=== PATIENT | male | born 1970 | race Caucasian/White ===

== ENCOUNTER 2019-01-29 09:09 | Inpatient (IN) | payer OTHER ==
[2019-01-29 10:25] VITALS: BMI 23.1
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
[2019-01-29] MEDS ORDERED: MAGNESIUM CITRATE 300 ML BOTTLE PO PRN (12:15)
[2019-01-29] MEDS ORDERED: METHOCARBAMOL 500 MG TABLET PO PRN (12:15)
[2019-01-29] MEDS ORDERED: MAGNESIUM HYDROX 2400MG/30ML ORAL SUSPENSION 30 ML CUP PO PRN (12:15)
[2019-01-29] MEDS ORDERED: BISMUTH SUBSALICYLATE 524 MG/30 ML UD PO PRN (12:15)
[2019-01-29] MEDS ORDERED: IBUPROFEN 400 MG TABLET (FP) PO PRN (12:15)
[2019-01-29] MEDS ORDERED: MAG HYDROX/AL HYDROX/SIMETH 30 ML UNIT-DOSE CUP PO PRN (12:15)
[2019-01-29] MEDS ORDERED: MENTHOL/PHENOL 1 EACH UD MM PRN (12:15)
[2019-01-29] MEDS ORDERED: chlordiazePOXIDE HCL 25 MG CAPSULE PO PRN (12:15)
[2019-01-29] MEDS ORDERED: ACETAMINOPHEN 325 MG TABLET (FP) PO PRN ×2 (12:15)
[2019-01-29] MEDS ORDERED: ALBUTEROL SO4 8 GM HFA INHALER IH PRN (12:18)
[2019-01-29] MEDS: BUDESONIDE/FORMETEROL FUMARATE 80/4.5 mcg INHALER IH SCH (13:09)
[2019-01-29] MEDS: metoPROLOL SUCCINATE 25 MG TAB.SR.24H (FP) PO SCH (13:09)
[2019-01-29] MEDS: LISINOPRIL 10 MG TABLET (FP) PO SCH (13:09)
[2019-01-29] MEDS: chlordiazePOXIDE HCL 25 MG CAPSULE PO SCH ×3 (13:11→22:10)
[2019-01-29 15:44] LABS: HEMATOCRIT 35.2 % (35.4-49); HEMOGLOBIN 12.1 GM/dL (11.7-16.9); MCH 32.7 pg (25.7-33.7); MCHC 34.4 g/dl (32.0-35.9); MEAN PLT VOLUME 9.8 fl (7.5-11.1); PLATELET COUNT 91 K/MM3 (134-434); RDW 13.3 % (11.9-15.9); WHITE BLOOD COUNT 4.4 K/mm3 (4.0-10.0)
[2019-01-29 16:06] LABS: ALBUMIN 3.6 g/dl (3.4-5.0); BILIRUBIN,TOTAL 0.4 mg/dL (0.2-1); BLOOD UREA NITROGEN 8.4 mg/dL (7-18); CALCIUM 8.5 mg/dL (8.5-10.1); CREATININE 0.7 mg/dL (0.55-1.3); POTASSIUM 3.8 mmol/L (3.5-5.1); TOT PROT 7.6 g/dl (6.4-8.2)
[2019-01-29] MEDS: THIAMINE HCL 100 MG TABLET (FP) PO SCH (22:10)
[2019-01-29] MEDS: MELATONIN 5 MG TABLETS PO PRN (22:11)
[2019-01-30] MEDS ORDERED: METHADONE HCL 40 MG DISPERSABLE TABLET ONE (04:50)
[2019-01-30] MEDS ORDERED: METHADONE HCL 10 MG TABLET ONE (04:50)
[2019-01-30] MEDS: chlordiazePOXIDE HCL 25 MG CAPSULE PO SCH ×4 (05:50→22:12)
[2019-01-30] MEDS: METHADONE 40 MG, METHADONE 10 MG PO SCH (05:50)
[2019-01-30] MEDS ORDERED: METHADONE HCL 40 MG DISPERSABLE TABLET PO SCH (10:00)
[2019-01-30] MEDS: PRENATAL VITAMINS W/ FOLIC ACID TABLET (FP) PO SCH (10:08)
[2019-01-30] MEDS: BUDESONIDE/FORMETEROL FUMARATE 80/4.5 mcg INHALER IH SCH (10:08)
[2019-01-30] MEDS: metoPROLOL SUCCINATE 25 MG TAB.SR.24H (FP) PO SCH (10:08)
[2019-01-30] MEDS: LISINOPRIL 10 MG TABLET (FP) PO SCH (10:09)
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
[2019-01-30] MEDS ORDERED: NICOTINE POLACRILEX 2 MG GUM BUC PRN (15:53)
--- NOTE | 2019-01-30 15:58 | PN ---
S CIWA - CIWA Score Nausea/Vomitin-Mild Nausea/No Vomiting Muscle Tremors: 4-Moderate,w/Arms Extend Anxiety: 3 Agitation: 2 Paroxysmal Sweats: 1-Minimal Palms Moist Orientation: 0-Oriented Tacttile Disturbances: 1-Very Mild Itch/Numbness Auditory Disturbances: 0-None Visual Disturbances: 0-None Headache: 1-Very Mild CIWA-Ar Total Score: 13 BHS Progress Note (SOAP) Subjective: 49 years old male admitted on 01/29/19 for acute alcohol withdrawal sx management doing well with librium detox regimen feeling tired resting on bed tremor restlessness Objective: 01/30/19 15:56 Vital Signs Temperature 98.9 F 01/30/19 09:43 Pulse Rate 71 01/30/19 09:43 Respiratory Rate 18 01/30/19 09:43 Blood Pressure 146/91 01/30/19 09:43 O2 Sat by Pulse Oximetry (%) Laboratory Last Values WBC 4.4 K/mm3 (4.0-10.0) 01/29/19 12:40 RBC 3.70 M/mm3 (4.00-5.60) L 01/29/19 12:40 Hgb 12.1 GM/dL (11.7-16.9) 01/29/19 12:40 Hct 35.2 % (35.4-49) L 01/29/19 12:40 MCV 95.0 fl (80-96) 01/29/19 12:40 MCH 32.7 pg (25.7-33.7) 01/29/19 12:40 MCHC 34.4 g/dl (32.0-35.9) 01/29/19 12:40 RDW 13.3 % (11.9-15.9) 01/29/19 12:40 Plt Count 91 K/MM3 (134-434) L 01/29/19 12:40 MPV 9.8 fl (7.5-11.1) 01/29/19 12:40 Sodium 143 mmol/L (136-145) 01/29/19 12:40 Potassium 3.8 mmol/L (3.5-5.1) 01/29/19 12:40 Chloride 107 mmol/L (98-107) 01/29/19 12:40 Carbon Dioxide 27 mmol/L (21-32) 01/29/19 12:40 Anion Gap 9 MMOL/L (8-16) 01/29/19 12:40 BUN 8.4 mg/dL (7-18) 01/29/19 12:40 Creatinine 0.7 mg/dL (0.55-1.3) 01/29/19 12:40 Est GFR (CKD-EPI)AfAm 130.25 01/29/19 12:40 Est GFR (CKD-EPI)NonAf 112.38 01/29/19 12:40 Random Glucose 122 mg/dL (74-106) H 01/29/19 12:40 Calcium 8.5 mg/dL (8.5-10.1) 01/29/19 12:40 Total Bilirubin 0.4 mg/dL (0.2-1) 01/29/19 12:40 AST 106 U/L (15-37) H 01/29/19 12:40 ALT 91 U/L (13-61) H 01/29/19 12:40 Alkaline Phosphatase 72 U/L (45-117) 01/29/19 12:40 Total Protein 7.6 g/dl (6.4-8.2) 01/29/19 12:40 Albumin 3.6 g/dl (3.4-5.0) 01/29/19 12:40 RPR Titer Nonreactive (NONREACTIVE) 01/29/19 12:40 lab noted ast elevation low plat discontinue motrin repeat ast 01/30/19 15:57 Assessment: 01/30/19 15:57 alcohol withdrawal sx Plan: continue alcohol detox
[2019-01-30] MEDS: NICOTINE 14 MG/24 HOURS TOPICAL PATCH TD SCH (16:54)
[2019-01-30] MEDS: THIAMINE HCL 100 MG TABLET (FP) PO SCH (22:12)
[2019-01-30] MEDS: QUEtiapine FUMARATE 100 MG TABLET (FP) PO SCH (22:14)
[2019-01-31] MEDS ORDERED: METHADONE HCL 10 MG TABLET ONE (03:44)
[2019-01-31] MEDS ORDERED: METHADONE HCL 40 MG DISPERSABLE TABLET ONE (03:44)
[2019-01-31] MEDS: chlordiazePOXIDE HCL 25 MG CAPSULE PO SCH ×4 (05:44→22:07)
[2019-01-31] MEDS: METHADONE 40 MG, METHADONE 10 MG PO SCH (05:44)
[2019-01-31] MEDS: BUDESONIDE/FORMETEROL FUMARATE 80/4.5 mcg INHALER IH SCH (10:06)
[2019-01-31] MEDS: NICOTINE 14 MG/24 HOURS TOPICAL PATCH TD SCH (10:07)
[2019-01-31] MEDS: PRENATAL VITAMINS W/ FOLIC ACID TABLET (FP) PO SCH (10:07)
[2019-01-31] MEDS: metoPROLOL SUCCINATE 25 MG TAB.SR.24H (FP) PO SCH (10:07)
[2019-01-31] MEDS: LISINOPRIL 10 MG TABLET (FP) PO SCH (10:07)
[2019-01-31] MEDS ORDERED: cloNIDine HCL 0.1 MG TABLET PO ONE (14:25)
--- NOTE | 2019-01-31 14:30 | PN ---
[facility] CIWA - CIWA Score Nausea/Vomitin-No Nausea/No Vomiting Muscle Tremors: 2 Anxiety: 5 Agitation: 4-Moderately Restless Paroxysmal Sweats: No Perspiration Orientation: 2-Disoriented Date<2 days Tacttile Disturbances: 1-Very Mild Itch/Numbness Auditory Disturbances: 0-None Visual Disturbances: 0-None Headache: 0-None Present CIWA-Ar Total Score: 14 BHS Progress Note (SOAP) Subjective: Patient very Anxious and Restless. Objective: PATIENT A & O X 2 (UNCERTAIN ABOUT CURRENT DAY / DATE). PATIENT OBSERVED AMBULATING ON UNIT UNASSISTED. IN NO ACUTE DISTRESS. 01/31/19 14:27 Vital Signs Temperature 98.0 F 01/31/19 13:32 Pulse Rate 71 01/31/19 13:32 Respiratory Rate 18 01/31/19 13:32 Blood Pressure 123/82 01/31/19 13:32 O2 Sat by Pulse Oximetry (%) Laboratory Tests 01/29/19 01/29/19 01/29/19 12:40 12:40 12:40 WBC 4.4 RBC 3.70 L Hgb 12.1 Hct 35.2 L MCV 95.0 MCH 32.7 MCHC 34.4 RDW 13.3 Plt Count 91 L MPV 9.8 Sodium 143 Potassium 3.8 Chloride 107 Carbon Dioxide 27 Anion Gap 9 BUN 8.4 Creatinine 0.7 Est GFR (CKD-EPI)AfAm 130.25 Est GFR (CKD-EPI)NonAf 112.38 Random Glucose 122 H Calcium 8.5 Total Bilirubin 0.4 AST 106 H ALT 91 H Alkaline Phosphatase 72 Total Protein 7.6 Albumin 3.6 RPR Titer Nonreactive 01/31/19 07:00 WBC RBC Hgb Hct MCV MCH MCHC RDW Plt Count MPV Sodium Potassium Chloride Carbon Dioxide Anion Gap BUN Creatinine Est GFR (CKD-EPI)AfAm Est GFR (CKD-EPI)NonAf Random Glucose Calcium Total Bilirubin AST 83 H ALT Alkaline Phosphatase Total Protein Albumin RPR Titer LABS NOTED. RESULT OF REPEAT AST LEVEL NOTED - MODERATE REDUCTION NOTED IN COMPARISON TO ADMISSION AST LEVEL. 01/31/19 14:29 Assessment: 01/31/19 14:29 WITHDRAWAL SYMPTOMS. ANEMIA. THROMBOCYTOPENIA. ELEVATED AST LEVEL. ELEVATED ALT LEVEL. Plan: CONTINUE DETOX. INCREASE DAILY PO WATER INTAKE.
[2019-01-31] MEDS: hydrOXYzine PAMOATE 25 MG CAPSULE (FP) PO PRN (14:53)
[2019-01-31] MEDS: THIAMINE HCL 100 MG TABLET (FP) PO SCH (22:07)
[2019-01-31] MEDS: QUEtiapine FUMARATE 100 MG TABLET (FP) PO SCH (22:07)
[2019-01-31] MEDS: MELATONIN 5 MG TABLETS PO PRN (22:08)
[2019-02-01] MEDS ORDERED: chlordiazePOXIDE HCL 10 MG CAPSULE PO PRN
[2019-02-01] MEDS ORDERED: METHADONE HCL 40 MG DISPERSABLE TABLET ONE (04:51)
[2019-02-01] MEDS ORDERED: METHADONE HCL 10 MG TABLET ONE (04:51)
[2019-02-01] MEDS: chlordiazePOXIDE HCL 10 MG CAPSULE PO SCH ×4 (06:13→22:06)
[2019-02-01] MEDS: METHADONE 40 MG, METHADONE 10 MG PO SCH (06:13)
[2019-02-01] MEDS: BUDESONIDE/FORMETEROL FUMARATE 80/4.5 mcg INHALER IH SCH (10:08)
[2019-02-01] MEDS: PRENATAL VITAMINS W/ FOLIC ACID TABLET (FP) PO SCH (10:09)
[2019-02-01] MEDS: NICOTINE 14 MG/24 HOURS TOPICAL PATCH TD SCH (10:09)
[2019-02-01] MEDS: LISINOPRIL 10 MG TABLET (FP) PO SCH (10:09)
[2019-02-01] MEDS: metoPROLOL SUCCINATE 25 MG TAB.SR.24H (FP) PO SCH (10:09)
--- NOTE | 2019-02-01 14:38 | PN ---
[facility] CIWA - CIWA Score Nausea/Vomitin-No Nausea/No Vomiting Muscle Tremors: None Anxiety: 4-Mod. Anxious/Guarded Agitation: 4-Moderately Restless Paroxysmal Sweats: No Perspiration Orientation: 0-Oriented Tacttile Disturbances: 1-Very Mild Itch/Numbness Auditory Disturbances: 0-None Visual Disturbances: 0-None Headache: 0-None Present CIWA-Ar Total Score: 9 S Progress Note (SOAP) Subjective: Anxious, Restless. Objective: PATIENT A & O X 3, OBSERVED AMBULATING ON DETOX UNIT UNASSISTED. IN NO ACUTE DISTRESS. 02/01/19 14:39 Vital Signs Temperature 98.1 F 02/01/19 13:46 Pulse Rate 61 02/01/19 13:46 Respiratory Rate 16 02/01/19 13:46 Blood Pressure 114/72 02/01/19 13:46 O2 Sat by Pulse Oximetry (%) Laboratory Tests 01/29/19 01/29/19 01/29/19 12:40 12:40 12:40 WBC 4.4 RBC 3.70 L Hgb 12.1 Hct 35.2 L MCV 95.0 MCH 32.7 MCHC 34.4 RDW 13.3 Plt Count 91 L MPV 9.8 Sodium 143 Potassium 3.8 Chloride 107 Carbon Dioxide 27 Anion Gap 9 BUN 8.4 Creatinine 0.7 Est GFR (CKD-EPI)AfAm 130.25 Est GFR (CKD-EPI)NonAf 112.38 Random Glucose 122 H Calcium 8.5 Total Bilirubin 0.4 AST 106 H ALT 91 H Alkaline Phosphatase 72 Total Protein 7.6 Albumin 3.6 RPR Titer Nonreactive 01/31/19 07:00 WBC RBC Hgb Hct MCV MCH MCHC RDW Plt Count MPV Sodium Potassium Chloride Carbon Dioxide Anion Gap BUN Creatinine Est GFR (CKD-EPI)AfAm Est GFR (CKD-EPI)NonAf Random Glucose Calcium Total Bilirubin AST 83 H ALT Alkaline Phosphatase Total Protein Albumin RPR Titer LABS NOTED. RESULT OF REPEAT AST LEVEL NOTED. MODERATE REDUCTION NOTED ON REPEAT IN COMAPRISON TO DETOX ADMISSION AST LEVEL. Assessment: 02/01/19 14:40 WITHDRAWAL SYMPTOMS. LEUKOPENIA. ANEMIA. ELEVATED AST LEVEL. ELEVATED ALT LEVEL. Plan: CONTINUE DETOX. CLONIDINE, 0.1 MG PO X 1 DOSE ORDERED FOR SEVERE ANXIETY DUE TO WITHDRAWAL.
[2019-02-01] MEDS ORDERED: cloNIDine HCL 0.1 MG TABLET PO ONE (15:00)
[2019-02-01] MEDS: THIAMINE HCL 100 MG TABLET (FP) PO SCH (22:06)
[2019-02-01] MEDS: hydrOXYzine PAMOATE 25 MG CAPSULE (FP) PO PRN (22:06)
[2019-02-01] MEDS: QUEtiapine FUMARATE 100 MG TABLET (FP) PO SCH (22:06)
[2019-02-02] MEDS ORDERED: METHADONE HCL 10 MG TABLET ONE (04:33)
[2019-02-02] MEDS ORDERED: METHADONE HCL 40 MG DISPERSABLE TABLET ONE (04:33)
[2019-02-02] MEDS: METHADONE 40 MG, METHADONE 10 MG PO SCH (05:52)
[2019-02-02] MEDS: chlordiazePOXIDE HCL 10 MG CAPSULE PO SCH ×2 (05:52→17:45)
[2019-02-02] MEDS: BUDESONIDE/FORMETEROL FUMARATE 80/4.5 mcg INHALER IH SCH (10:05)
[2019-02-02] MEDS: LISINOPRIL 10 MG TABLET (FP) PO SCH (10:06)
[2019-02-02] MEDS: NICOTINE 14 MG/24 HOURS TOPICAL PATCH TD SCH (10:06)
[2019-02-02] MEDS: metoPROLOL SUCCINATE 25 MG TAB.SR.24H (FP) PO SCH (10:06)
[2019-02-02] MEDS: PRENATAL VITAMINS W/ FOLIC ACID TABLET (FP) PO SCH (10:06)
--- NOTE | 2019-02-02 12:04 | PN ---
S CIWA - CIWA Score Nausea/Vomitin-No Nausea/No Vomiting Muscle Tremors: None Anxiety: 3 Agitation: 0-Normal Activity Paroxysmal Sweats: 3 Orientation: 0-Oriented Tacttile Disturbances: 0-None Auditory Disturbances: 0-None Visual Disturbances: 0-None Headache: 0-None Present CIWA-Ar Total Score: 6 BHS Progress Note (SOAP) Subjective: c/o sweats and anxiety. Objective: 02/02/19 12:02 Vital Signs 02/02/19 02/02/19 02/02/19 06:41 07:36 09:49 Temperature 98.9 F 98.2 F Pulse Rate 62 94 H Respiratory 18 18 Rate Blood Pressure 157/99 143/95 103/75 Lab Results WBC 4.4 K/mm3 (4.0-10.0) 01/29/19 12:40 RBC 3.70 M/mm3 (4.00-5.60) L 01/29/19 12:40 Hgb 12.1 GM/dL (11.7-16.9) 01/29/19 12:40 Hct 35.2 % (35.4-49) L 01/29/19 12:40 MCV 95.0 fl (80-96) 01/29/19 12:40 MCHC 34.4 g/dl (32.0-35.9) 01/29/19 12:40 RDW 13.3 % (11.9-15.9) 01/29/19 12:40 Plt Count 91 K/MM3 (134-434) L 01/29/19 12:40 Sodium 143 mmol/L (136-145) 01/29/19 12:40 Potassium 3.8 mmol/L (3.5-5.1) 01/29/19 12:40 Chloride 107 mmol/L (98-107) 01/29/19 12:40 Carbon Dioxide 27 mmol/L (21-32) 01/29/19 12:40 Anion Gap 9 MMOL/L (8-16) 01/29/19 12:40 BUN 8.4 mg/dL (7-18) 01/29/19 12:40 Creatinine 0.7 mg/dL (0.55-1.3) 01/29/19 12:40 Random Glucose 122 mg/dL (74-106) H 01/29/19 12:40 Calcium 8.5 mg/dL (8.5-10.1) 01/29/19 12:40 Labs noted. Assessment: 02/02/19 12:03 AOX3, in no acute respiratory distress Full ROM, ambulating in the unit. withdrawal symptoms. Pt is for discharge in AM. As per pt he has refills on his home medications. Plan: continue detox. Discharge in AM.
[2019-02-02] MEDS: hydrOXYzine PAMOATE 25 MG CAPSULE (FP) PO PRN (20:41)
[2019-02-02] MEDS: MELATONIN 5 MG TABLETS PO PRN (22:11)
[2019-02-02] MEDS: QUEtiapine FUMARATE 100 MG TABLET (FP) PO SCH (22:11)
[2019-02-02] MEDS: THIAMINE HCL 100 MG TABLET (FP) PO SCH (22:11)
[2019-02-03] MEDS ORDERED: METHADONE HCL 10 MG TABLET ONE (04:32)
[2019-02-03] MEDS ORDERED: METHADONE HCL 40 MG DISPERSABLE TABLET ONE (04:33)
[2019-02-03] MEDS ORDERED: chlordiazePOXIDE HCL 10 MG CAPSULE PO ONE (05:00)
[2019-02-03] MEDS: METHADONE 40 MG, METHADONE 10 MG PO SCH (05:12)
[2019-02-03 09:44] VITALS: BP 106/67; PULSE 84; TEMP 98.3
[2019-02-03] MEDS: metoPROLOL SUCCINATE 25 MG TAB.SR.24H (FP) PO SCH (09:49)
[2019-02-03] MEDS: PRENATAL VITAMINS W/ FOLIC ACID TABLET (FP) PO SCH (09:49)
[2019-02-03] MEDS: LISINOPRIL 10 MG TABLET (FP) PO SCH (09:49)
[2019-02-03] MEDS: NICOTINE 14 MG/24 HOURS TOPICAL PATCH TD SCH (09:50)
--- NOTE | 2019-02-03 15:07 | DS ---
[facility] Detox Discharge Summary Admission Date: 01/29/19 Discharge Date: 02/03/19 - History Present History: Alcohol Dependence, Sedative Dependence Additional Comments: 49 years old male admitted on 01/29/19 for acute alcohol and benzo withdrawal sx management doing well with librium detox protocol no complication through out the detox stay alert oriented x 3 speech clearly coherently steady gait S1S2 clear lung bilaterally abdomen soft none tender ate 90% breakfast showered patient prefers to go to [facility] as aftercare for alcohol and benzo recovery Pertinent Past History: anemia hypertension asthma patient may return to methadone maintenance program for follow up encourage to bring in medication list and lab report for follow up - Physical Exam Results Vital Signs: Vital Signs Temperature 98.3 F 02/03/19 09:44 Pulse Rate 84 02/03/19 09:44 Respiratory Rate 18 02/03/19 09:44 Blood Pressure 106/67 02/03/19 09:44 O2 Sat by Pulse Oximetry (%) Pertinent Admission Physical Exam Findings: alcohol and benzo withdrawal sx Laboratory Last Values WBC 4.4 K/mm3 (4.0-10.0) 01/29/19 12:40 RBC 3.70 M/mm3 (4.00-5.60) L 01/29/19 12:40 Hgb 12.1 GM/dL (11.7-16.9) 01/29/19 12:40 Hct 35.2 % (35.4-49) L 01/29/19 12:40 MCV 95.0 fl (80-96) 01/29/19 12:40 MCH 32.7 pg (25.7-33.7) 01/29/19 12:40 MCHC 34.4 g/dl (32.0-35.9) 01/29/19 12:40 RDW 13.3 % (11.9-15.9) 01/29/19 12:40 Plt Count 91 K/MM3 (134-434) L 01/29/19 12:40 MPV 9.8 fl (7.5-11.1) 01/29/19 12:40 Sodium 143 mmol/L (136-145) 01/29/19 12:40 Potassium 3.8 mmol/L (3.5-5.1) 01/29/19 12:40 Chloride 107 mmol/L (98-107) 01/29/19 12:40 Carbon Dioxide 27 mmol/L (21-32) 01/29/19 12:40 Anion Gap 9 MMOL/L (8-16) 01/29/19 12:40 BUN 8.4 mg/dL (7-18) 01/29/19 12:40 Creatinine 0.7 mg/dL (0.55-1.3) 01/29/19 12:40 Est GFR (CKD-EPI)AfAm 130.25 01/29/19 12:40 Est GFR (CKD-EPI)NonAf 112.38 01/29/19 12:40 Random Glucose 122 mg/dL (74-106) H 01/29/19 12:40 Calcium 8.5 mg/dL (8.5-10.1) 01/29/19 12:40 Total Bilirubin 0.4 mg/dL (0.2-1) 01/29/19 12:40 AST 83 U/L (15-37) H 01/31/19 07:00 ALT 91 U/L (13-61) H 01/29/19 12:40 Alkaline Phosphatase 72 U/L (45-117) 01/29/19 12:40 Total Protein 7.6 g/dl (6.4-8.2) 01/29/19 12:40 Albumin 3.6 g/dl (3.4-5.0) 01/29/19 12:40 RPR Titer Nonreactive (NONREACTIVE) 01/29/19 12:40 lab noted ast elevation most likely alcohol misuse related - Treatment Hospital Course: Detox Protocol Followed, Detoxed Safely, Responded well, Discharged Condition Good, Rehab Referral Accepted Patient has Accepted a Rehab Referral to: [facility] - Medication Discharge Medications: Ambulatory Orders Albuterol Sulfate Inhaler - [Ventolin HFA Inhaler -] 2 inh PO Q4H PRN 01/29/19 Budesonide/Formeterol Fumarate [SYMBICORT 80/4.5mcg -] 1 inh PO DAILY 01/29/19 Lisinopril 10 mg PO DAILY 01/29/19 Methadone [Dolophine -] 50 mg PO DAILY 01/29/19 Metoprolol Succinate [Toprol XL -] 25 mg PO DAILY 01/29/19 - Diagnosis (1) Alcohol withdrawal Status: Acute Qualifiers: Complication of substance-induced condition: uncomplicated Qualified Code(s ): F10.230 - Alcohol dependence with withdrawal, uncomplicated (2) Hypertension Status: Chronic Qualifiers: Hypertension type: essential hypertension Qualified Code(s): I10 - Essential (primary) hypertension (3) Nicotine dependence Status: Acute Qualifiers: Nicotine product type: cigarettes Substance use status: in withdrawal Qualified Code(s): F17.213 - Nicotine dependence, cigarettes, with withdrawal (4) Opioid dependence on agonist therapy Status: Chronic (5) Substance induced mood disorder Status: Suspected - AMA Did Patient Leave Against Medical Advice: No
== END 2019-02-03 10:08 | disposition home or self-care (01) | DRG 773 ==
LOC: YASAS 09:09 → Y3N 12:33
PROVIDERS: ADMIT Surgery; ATTEND Surgery
PROC: HZ2ZZZZ Detoxification Services for Substance Abuse Treatment (ICD-10-PCS; principal; 2019-01-29)
DX: F10.230 Alcohol dependence with withdrawal, uncomplicated (principal); F11.20 Opioid dependence, uncomplicated; F12.20 Cannabis dependence, uncomplicated; F17.213 Nicotine dependence, cigarettes, with withdrawal; F19.24 Other psychoactive substance dependence with psychoactive substance-induced mood disorder; I10 Essential (primary) hypertension; D72.819 Decreased white blood cell count, unspecified; D64.9 Anemia, unspecified; D69.6 Thrombocytopenia, unspecified; R74.0 Nonspecific elevation of levels of transaminase and lactic acid dehydrogenase [LDH]; G47.00 Insomnia, unspecified; J45.909 Unspecified asthma, uncomplicated
CPT/HCPCS: 36415; 80053; 84450; 85027; 86593; J0735

== ENCOUNTER 2019-03-15 11:57 | Inpatient (IN) | payer OTHER ==
[2019-03-15 16:57] VITALS: BMI 24.3
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
[2019-03-15] MEDS ORDERED: BISMUTH SUBSALICYLATE 524 MG/30 ML UD PO PRN (18:09)
[2019-03-15] MEDS ORDERED: PROCHLORPERAZINE MALEATE 5 MG TABLET PO PRN (18:09)
[2019-03-15] MEDS ORDERED: MAGNESIUM HYDROX 2400MG/30ML ORAL SUSPENSION 30 ML CUP PO PRN (18:09)
[2019-03-15] MEDS ORDERED: MAGNESIUM CITRATE 300 ML BOTTLE PO PRN (18:09)
[2019-03-15] MEDS ORDERED: METHOCARBAMOL 500 MG TABLET PO PRN (18:09)
[2019-03-15] MEDS ORDERED: hydrOXYzine PAMOATE 25 MG CAPSULE (FP) PO PRN (18:09)
[2019-03-15] MEDS ORDERED: ACETAMINOPHEN 325 MG TABLET (FP) PO PRN ×2 (18:09)
[2019-03-15] MEDS ORDERED: MAG HYDROX/AL HYDROX/SIMETH 30 ML UNIT-DOSE CUP PO PRN (18:09)
[2019-03-15] MEDS ORDERED: MELATONIN 5 MG TABLETS PO PRN (18:09)
[2019-03-15] MEDS ORDERED: chlordiazePOXIDE HCL 25 MG CAPSULE PO PRN (18:09)
[2019-03-15] MEDS ORDERED: MENTHOL/PHENOL 1 EACH UD MM PRN (18:09)
[2019-03-15] MEDS ORDERED: ALBUTEROL SO4 8 GM HFA INHALER IH PRN (18:13)
[2019-03-15] MEDS ORDERED: METHADONE HCL 40 MG DISPERSABLE TABLET PO SCH (18:15)
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
[2019-03-15] MEDS ORDERED: chlordiazePOXIDE HCL 25 MG CAPSULE PO ONE (18:45)
[2019-03-15] MEDS ORDERED: METHADONE 40 MG, METHADONE 30 MG PO ONE (19:00)
[2019-03-15] MEDS ORDERED: METHADONE HCL 10 MG TABLET ONE (19:12)
[2019-03-15] MEDS ORDERED: METHADONE HCL 40 MG DISPERSABLE TABLET ONE (19:12)
[2019-03-15] MEDS: metoPROLOL SUCCINATE 25 MG TAB.SR.24H (FP) PO SCH (19:15)
[2019-03-15] MEDS: LISINOPRIL 10 MG TABLET (FP) PO SCH (19:15)
[2019-03-15] MEDS: IBUPROFEN 400 MG TABLET (FP) PO PRN (19:48)
[2019-03-15] MEDS: THIAMINE HCL 100 MG TABLET (FP) PO SCH (22:19)
[2019-03-15] MEDS: chlordiazePOXIDE HCL 25 MG CAPSULE PO SCH (22:19)
[2019-03-16] MEDS ORDERED: METHADONE HCL 40 MG DISPERSABLE TABLET ONE (05:44)
[2019-03-16] MEDS ORDERED: METHADONE HCL 10 MG TABLET ONE (05:44)
[2019-03-16] MEDS: chlordiazePOXIDE HCL 25 MG CAPSULE PO SCH ×4 (06:20→22:49)
[2019-03-16] MEDS: METHADONE 40 MG, METHADONE 30 MG PO SCH (06:20)
[2019-03-16] MEDS: NICOTINE 14 MG/24 HOURS TOPICAL PATCH TD SCH (10:08)
[2019-03-16] MEDS: BUDESONIDE/FORMETEROL FUMARATE 80/4.5 mcg INHALER IH SCH (10:09)
[2019-03-16] MEDS: PRENATAL VITAMINS W/ FOLIC ACID TABLET (FP) PO SCH (10:09)
[2019-03-16] MEDS: LISINOPRIL 10 MG TABLET (FP) PO SCH (10:10)
[2019-03-16] MEDS: metoPROLOL SUCCINATE 25 MG TAB.SR.24H (FP) PO SCH (10:10)
--- NOTE | 2019-03-16 11:00 | PN ---
S CIWA - CIWA Score Nausea/Vomitin-No Nausea/No Vomiting Muscle Tremors: 2 Anxiety: 3 Agitation: 2 Paroxysmal Sweats: 3 Orientation: 0-Oriented Tacttile Disturbances: 0-None Auditory Disturbances: 0-None Visual Disturbances: 0-None Headache: 2-Mild CIWA-Ar Total Score: 12 [facility] Progress Note (SOAP) Subjective: c/o sweats, headache, anxiety, and mild shakes. Objective: 03/16/19 10:59 Vital Signs 03/16/19 03/16/19 03/16/19 03:30 06:00 09:37 Temperature 98.2 F 98.6 F Pulse Rate 65 84 Respiratory 18 18 18 Rate Blood Pressure 137/87 156/110 H Labs pending. Assessment: 03/16/19 10:59 AOX3, in no acute distress. Full ROM, ambulating in the unit. Withdrawal symptoms. Plan: continue detox.
[2019-03-16 11:18] LABS: HEMATOCRIT 37.7 % (35.4-49); HEMOGLOBIN 12.9 GM/dL (11.7-16.9); MCH 33.4 pg (25.7-33.7); MCHC 34.1 g/dl (32.0-35.9); MEAN CELL VOLUME 97.9 fl (80-96); MEAN PLT VOLUME 10.2 fl (7.5-11.1); PLATELET COUNT 91 K/MM3 (134-434); RBC 3.85 M/mm3 (4.00-5.60); RDW 15.5 % (11.9-15.9); WHITE BLOOD COUNT 3.3 K/mm3 (4.0-10.0)
[2019-03-16 11:39] LABS: ALBUMIN 3.7 g/dl (3.4-5.0); BILIRUBIN,TOTAL 1.9 mg/dL (0.2-1); BLOOD UREA NITROGEN 14.3 mg/dL (7-18); CREATININE 0.7 mg/dL (0.55-1.3); POTASSIUM 3.5 mmol/L (3.5-5.1); TOT PROT 7.4 g/dl (6.4-8.2)
[2019-03-16] MEDS: THIAMINE HCL 100 MG TABLET (FP) PO SCH (22:49)
[2019-03-16] MEDS: IBUPROFEN 400 MG TABLET (FP) PO PRN (22:50)
[2019-03-17] MEDS ORDERED: METHADONE HCL 40 MG DISPERSABLE TABLET ONE (03:14)
[2019-03-17] MEDS ORDERED: METHADONE HCL 10 MG TABLET ONE (03:14)
[2019-03-17] MEDS: chlordiazePOXIDE HCL 25 MG CAPSULE PO SCH ×2 (05:48→10:14)
[2019-03-17] MEDS: METHADONE 40 MG, METHADONE 30 MG PO SCH (05:48)
[2019-03-17] MEDS: PRENATAL VITAMINS W/ FOLIC ACID TABLET (FP) PO SCH (10:13)
[2019-03-17] MEDS: metoPROLOL SUCCINATE 25 MG TAB.SR.24H (FP) PO SCH (10:13)
[2019-03-17] MEDS: BUDESONIDE/FORMETEROL FUMARATE 80/4.5 mcg INHALER IH SCH (10:14)
[2019-03-17] MEDS: NICOTINE 14 MG/24 HOURS TOPICAL PATCH TD SCH (10:15)
[2019-03-17] MEDS: LISINOPRIL 10 MG TABLET (FP) PO SCH (13:10)
[2019-03-17 13:20] VITALS: BP 148/99; PULSE 73; TEMP 98.1
--- NOTE | 2019-03-17 14:53 | PN ---
S CIWA - CIWA Score Nausea/Vomitin-Mild Nausea/No Vomiting Muscle Tremors: 4-Moderate,w/Arms Extend Anxiety: 4-Mod. Anxious/Guarded Agitation: 3 Paroxysmal Sweats: 3 Orientation: 0-Oriented Tacttile Disturbances: 0-None Auditory Disturbances: 0-None Visual Disturbances: 0-None Headache: 2-Mild CIWA-Ar Total Score: 17 B[facility] Progress Note (SOAP) Subjective: Poor appetite, headache Objective: 03/17/19 14:49 Last Vital Signs Temp Pulse Resp BP Pulse Ox 98.1 F 73 18 148/99 03/17/19 13:19 03/17/19 13:19 03/17/19 13:19 03/17/19 13:19 Elevated b/p 148/99 (has htn, on medication) Laboratory Tests 03/16/19 03/16/19 03/16/19 08:00 08:00 08:00 WBC 3.3 L RBC 3.85 L Hgb 12.9 Hct 37.7 MCV 97.9 H MCH 33.4 MCHC 34.1 RDW 15.5 D Plt Count 91 L MPV 10.2 Sodium 136 Potassium 3.5 Chloride 100 Carbon Dioxide 30 Anion Gap 7 L BUN 14.3 Creatinine 0.7 Est GFR (CKD-EPI)AfAm 130.25 Est GFR (CKD-EPI)NonAf 112.38 Random Glucose 124 H Calcium 9.0 Total Bilirubin 1.9 H AST 121 H ALT 97 H Alkaline Phosphatase 56 Total Protein 7.4 Albumin 3.7 RPR Titer Nonreactive Labs reviewed: glucose 124, total bilirubin 1.9, AST/ALT 121/97 (all values elevated) Assessment: 03/17/19 14:52 Withdrawal sxs Noted with elevated b/p, hyperglycemia, elevated LFTs Plan: Continue detox Encouraged PO water intake Ensure 1 cup PO TID prn poor appetite HTN: on medication, monitor b/p Hyperglycemia: most likely due to withdrawal, repeat fasting glucose Elevated LFTs: repeat AST, ALT and total bilirubin
[2019-03-18] MEDS ORDERED: chlordiazePOXIDE HCL 10 MG CAPSULE PO PRN
[2019-03-18] MEDS ORDERED: chlordiazePOXIDE HCL 10 MG CAPSULE PO SCH (05:00)
[2019-03-19] MEDS ORDERED: chlordiazePOXIDE HCL 10 MG CAPSULE PO SCH (05:00)
[2019-03-20] MEDS ORDERED: chlordiazePOXIDE HCL 10 MG CAPSULE PO ONE (05:00)
== END 2019-03-17 15:22 | disposition left against medical advice (07) | DRG 770 ==
LOC: YASAS 11:57 → Y6N 18:38
PROVIDERS: ADMIT Surgery; ATTEND Surgery
PROC: HZ2ZZZZ Detoxification Services for Substance Abuse Treatment (ICD-10-PCS; principal; 2019-03-15)
DX: F10.230 Alcohol dependence with withdrawal, uncomplicated (principal); F11.20 Opioid dependence, uncomplicated; F13.10 Sedative, hypnotic or anxiolytic abuse, uncomplicated; F12.10 Cannabis abuse, uncomplicated; F17.210 Nicotine dependence, cigarettes, uncomplicated; F41.8 Other specified anxiety disorders; F32.9 Major depressive disorder, single episode, unspecified; G47.00 Insomnia, unspecified; I10 Essential (primary) hypertension; J45.909 Unspecified asthma, uncomplicated; R73.9 Hyperglycemia, unspecified; R94.5 Abnormal results of liver function studies; Z87.828 Personal history of other (healed) physical injury and trauma
CPT/HCPCS: 36415; 80053; 85027; 86593

== ENCOUNTER 2023-07-27 19:11 | Inpatient (IN) | payer OTHER ==
[2023-07-27 19:50] VITALS: BMI 21.2
[2023-07-27] MEDS ORDERED: guaiFENesin 600 MG TABLET.ER (FP) PO PRN (20:46)
[2023-07-27] MEDS ORDERED: DICYCLOMINE HCL 10 MG CAPSULE PO PRN ×2 (20:46→20:50)
[2023-07-27] MEDS ORDERED: ONDANSETRON *ODT* 4 MG TABLET SL PRN (20:46)
[2023-07-27] MEDS ORDERED: MAG HYDROX/AL HYDROX/SIMETH 30 ML UNIT-DOSE CUP PO PRN (20:46)
[2023-07-27] MEDS ORDERED: NALOXONE HCL 0.4 MG/ML VIAL IM PRN (20:46)
[2023-07-27] MEDS ORDERED: BISMUTH SUBSALICYLATE 524 MG/30 ML PO PRN (20:46)
[2023-07-27] MEDS ORDERED: IBUPROFEN 400 MG TABLET (FP) PO PRN (20:46)
[2023-07-27] MEDS ORDERED: BENZONATATE 200 MG CAPSULE PO PRN (20:46)
[2023-07-27] MEDS ORDERED: MAGNESIUM HYDROX 2400MG/30ML ORAL SUSPENSION 30 ML CUP PO PRN (20:46)
[2023-07-27] MEDS ORDERED: NALOXONE HCL (KLOXXADO) 8 MG SPRAY NS PRN (20:46)
[2023-07-27] MEDS ORDERED: IBUPROFEN 600 MG TABLET (FP) PO PRN (20:46)
[2023-07-27] MEDS ORDERED: BENZOCAINE/MENTHOL (CHLORASEPTIC ) LOZENGE MM PRN (20:46)
[2023-07-27] MEDS ORDERED: ACETAMINOPHEN 325 MG TABLET (FP) PO PRN (20:46)
[2023-07-27] MEDS ORDERED: LOPERAMIDE HCL 2 MG CAPSULE PO PRN (20:46)
[2023-07-27] MEDS ORDERED: POLYETHYLENE GLYCOL (HEALTHYLAX) 3350 17 GM PACKET PO PRN (20:46)
[2023-07-27] MEDS ORDERED: METHOCARBAMOL 500 MG TABLET PO PRN (20:46)
[2023-07-27] MEDS ORDERED: NICOTINE POLACRILEX 2 MG LOZENGE BC PRN (20:50)
[2023-07-27 22:00] VITALS: RESP 18
[2023-07-27] MEDS ORDERED: MELATONIN 5 MG TABLETS PO SCH (22:00)
[2023-07-27] MEDS ORDERED: THIAMINE HCL 100 MG TABLET (FP) PO SCH (22:00)
[2023-07-27 23:22] VITALS: BP 149/86; PULSE 147; TEMP 97.8
[2023-07-28] MEDS ORDERED: NICOTINE 14 MG/24 HOURS TOPICAL PATCH TD SCH (10:00)
[2023-07-28] MEDS ORDERED: PRENATAL VITAMINS W/ FOLIC ACID TABLET (FP) PO SCH (10:00)
== END 2023-07-27 23:50 | disposition short-term general hospital (02) | DRG 773 ==
LOC: YASAS 19:11 → Y6N 21:26
PROVIDERS: ADMIT Allergy & Immunology; ATTEND Allergy & Immunology
PROC: HZ2ZZZZ Detoxification Services for Substance Abuse Treatment (ICD-10-PCS; principal; 2023-07-27)
DX: F10.20 Alcohol dependence, uncomplicated (principal); F11.20 Opioid dependence, uncomplicated; F14.10 Cocaine abuse, uncomplicated; F12.20 Cannabis dependence, uncomplicated; F17.210 Nicotine dependence, cigarettes, uncomplicated; I48.20 Chronic atrial fibrillation, unspecified; I44.7 Left bundle-branch block, unspecified; I10 Essential (primary) hypertension; J45.20 Mild intermittent asthma, uncomplicated
CPT/HCPCS: 87635; 93005; 93010

== ENCOUNTER 2023-07-28 00:06 | Inpatient (IN) | payer OTHER ==
[2023-07-28 00:56] VITALS: BMI 22.8
[2023-07-28] MEDS ORDERED: dilTIAZem HCL 50 MG/10 ML - 10 ML VIAL ONE (01:02)
[2023-07-28 01:05] LABS: BASO % 1.5 % (0-2.0); EOS % 6.7 % (0-4.5); HEMATOCRIT 34.4 % (35.4-49); HEMOGLOBIN 11.3 GM/dL (11.7-16.9); LYMPH % 34.3 % (8-40); MCH 30.5 pg (25.7-33.7); MCHC 32.9 g/dl (32.0-35.9); MEAN CELL VOLUME 92.9 fl (80-96); MEAN PLT VOLUME 8.3 fl (7.5-11.1); MONO % 9.8 % (3.8-10.2); NEUT % 47.7 % (42.8-82.8); PLATELET COUNT 215 10^3/uL (134-434); RDW 22.1 % (11.9-15.9); WHITE BLOOD COUNT 5.1 K/mm3 (4.0-10.0)
[2023-07-28] MEDS: dilTIAZem HCL 50 MG/10 ML - 10 ML VIAL IVPUSH ONE (01:12)
[2023-07-28 01:14] LABS: INR 1.12 (0.83-1.09)
[2023-07-28 01:17] LABS: ACTIVATED PTT 24.7 SECONDS (25.2-36.5)
[2023-07-28 01:28] LABS: POTASSIUM 4.5 mmol/L (3.5-5.1)
[2023-07-28 01:30] LABS: CALCIUM 9.2 mg/dL (8.5-10.1)
[2023-07-28 01:31] LABS: ALBUMIN 3.5 g/dl (3.4-5.0); BLOOD UREA NITROGEN 15.8 mg/dL (7-18); MAGNESIUM 1.9 mg/dL (1.8-2.4)
[2023-07-28 01:34] LABS: CREATININE 0.7 mg/dL (0.55-1.3)
[2023-07-28 01:36] LABS: BILIRUBIN,TOTAL 0.4 mg/dL (0.2-1); TOT PROT 8.6 g/dl (6.4-8.2)
[2023-07-28 01:39] LABS: N-TERMINAL BNP 13490.5 pg/ml (5-125)
[2023-07-28] MEDS ORDERED: FUROSEMIDE 40 MG/4 ML INJECTABLE VIAL ONE (02:37)
[2023-07-28] MEDS: FUROSEMIDE 40 MG/4 ML INJECTABLE VIAL IVPUSH ONE (02:51)
[2023-07-28] MEDS ORDERED: dilTIAZem HCL 30 MG TABLET ONE (03:56)
[2023-07-28] MEDS: dilTIAZem HCL 30 MG TABLET PO SCH (04:00)
[2023-07-28] MEDS ORDERED: ALBUTEROL SO4 HFA INHALER IH PRN (04:44)
[2023-07-28 05:28] LABS: ANISOCYTOSIS 3+; MACROCYTOSIS 0; OVALOCYTE 1+; ROULEAU 1+
[2023-07-28 06:25] LABS: EOS % 8.8 % (0-4.5); HEMATOCRIT 34.7 % (35.4-49); HEMOGLOBIN 11.3 GM/dL (11.7-16.9); LYMPH % 33.7 % (8-40); MCH 29.9 pg (25.7-33.7); MCHC 32.4 g/dl (32.0-35.9); MEAN CELL VOLUME 92.3 fl (80-96); MEAN PLT VOLUME 8.4 fl (7.5-11.1); MONO % 10.6 % (3.8-10.2); NEUT % 45.9 % (42.8-82.8); PLATELET COUNT 191 10^3/uL (134-434); RBC 3.76 M/mm3 (4.00-5.60); RDW 22.1 % (11.9-15.9); WHITE BLOOD COUNT 4.3 K/mm3 (4.0-10.0)
[2023-07-28 06:44] LABS: POTASSIUM 4.3 mmol/L (3.5-5.1)
[2023-07-28 06:46] LABS: ALBUMIN 3.6 g/dl (3.4-5.0); MAGNESIUM 2.1 mg/dL (1.8-2.4)
[2023-07-28 06:47] LABS: CALCIUM 9.1 mg/dL (8.5-10.1)
[2023-07-28 06:48] LABS: BLOOD UREA NITROGEN 14.6 mg/dL (7-18)
[2023-07-28 06:49] LABS: CREATININE 0.6 mg/dL (0.55-1.3)
[2023-07-28 06:51] LABS: PHOSPHOROUS 4.7 mg/dL (2.5-4.9); TOT PROT 8.1 g/dl (6.4-8.2)
[2023-07-28 06:52] LABS: BILIRUBIN,TOTAL 0.5 mg/dL (0.2-1)
[2023-07-28] MEDS ORDERED: chlordiazePOXIDE HCL 25 MG CAPSULE PO SCH (07:15)
[2023-07-28] MEDS ORDERED: ENOXAPARIN NA (PORCINE) 40 MG/0.4 ML DISP.SYRIN SQ SCH (10:00)
[2023-07-28] MEDS: THIAMINE HCL 100 MG TABLET (FP) PO SCH (11:17)
[2023-07-28] MEDS: FOLIC ACID 1 MG TABLET (FP) PO SCH (11:17)
[2023-07-28] MEDS: APIXABAN 5 MG TABLET PO SCH (11:17)
[2023-07-28] MEDS: chlordiazePOXIDE HCL 25 MG CAPSULE PO SCH (11:18)
[2023-07-28] MEDS: NICOTINE 14 MG/24 HOURS TOPICAL PATCH TD SCH (11:19)
[2023-07-28] MEDS: FUROSEMIDE 40 MG/4 ML INJECTABLE VIAL IVPUSH SCH (11:19)
[2023-07-28] MEDS: BUDESONIDE/FORMETEROL FUMARATE 80/4.5 mcg INHALER IH SCH (12:17)
[2023-07-28 13:26] LABS: BASO % 0.7 % (0-2.0); EOS % 7.6 % (0-4.5); HEMATOCRIT 38.6 % (35.4-49); HEMOGLOBIN 12.5 GM/dL (11.7-16.9); LYMPH % 26.1 % (8-40); MCHC 32.5 g/dl (32.0-35.9); MEAN CELL VOLUME 92.3 fl (80-96); MEAN PLT VOLUME 8.5 fl (7.5-11.1); MONO % 8.6 % (3.8-10.2); PLATELET COUNT 214 10^3/uL (134-434); RBC 4.18 M/mm3 (4.00-5.60); RETICULOCYTES 2.21 % (0.5-1.5); WHITE BLOOD COUNT 5.2 K/mm3 (4.0-10.0)
[2023-07-28 13:50] LABS: POTASSIUM 3.9 mmol/L (3.5-5.1)
[2023-07-28 13:52] LABS: BLOOD UREA NITROGEN 15.4 mg/dL (7-18); CALCIUM 9.8 mg/dL (8.5-10.1)
[2023-07-28 13:53] LABS: ALBUMIN 3.9 g/dl (3.4-5.0); MAGNESIUM 1.9 mg/dL (1.8-2.4)
[2023-07-28 13:56] LABS: CREATININE 0.7 mg/dL (0.55-1.3)
[2023-07-28 13:58] LABS: BILIRUBIN,TOTAL 0.8 mg/dL (0.2-1)
[2023-07-28] MEDS: methaDONE 40 MG, methaDONE 20 MG PO ONE (17:31)
[2023-07-28] MEDS: METOPROLOL TARTRATE 25 MG TABLET (FP) PO SCH (22:33)
[2023-07-29 08:04] LABS: BASO % 0.6 % (0-2.0); EOS % 6.8 % (0-4.5); HEMATOCRIT 34.9 % (35.4-49); HEMOGLOBIN 11.4 GM/dL (11.7-16.9); LYMPH % 35.4 % (8-40); MCH 30.5 pg (25.7-33.7); MCHC 32.8 g/dl (32.0-35.9); MEAN CELL VOLUME 92.8 fl (80-96); MEAN PLT VOLUME 8.9 fl (7.5-11.1); MONO % 8.4 % (3.8-10.2); NEUT % 48.8 % (42.8-82.8); PLATELET COUNT 214 10^3/uL (134-434); POTASSIUM 4.1 mmol/L (3.5-5.1); RBC 3.76 M/mm3 (4.00-5.60); RDW 21.8 % (11.9-15.9); WHITE BLOOD COUNT 4.6 K/mm3 (4.0-10.0)
[2023-07-29 08:40] LABS: BLOOD UREA NITROGEN 20.8 mg/dL (7-18)
[2023-07-29 08:42] LABS: ALBUMIN 3.2 g/dl (3.4-5.0); CALCIUM 9.1 mg/dL (8.5-10.1)
[2023-07-29 08:43] LABS: MAGNESIUM 1.7 mg/dL (1.8-2.4)
[2023-07-29 08:45] LABS: CREATININE 0.7 mg/dL (0.55-1.3)
[2023-07-29 08:47] LABS: BILIRUBIN,TOTAL 0.5 mg/dL (0.2-1)
[2023-07-29 08:51] LABS: N-TERMINAL BNP 4503.4 pg/ml (5-125)
[2023-07-29] MEDS: FUROSEMIDE 40 MG TABLET (FP) PO SCH (09:45)
[2023-07-29] MEDS: methaDONE HCL 10 MG TABLET PO SCH ×2 (14:33→14:42)
[2023-07-29] MEDS: methaDONE 40 MG, methaDONE 20 MG PO ONE (14:43)
[2023-07-30 08:18] LABS: BASO % 0.7 % (0-2.0); EOS % 5.3 % (0-4.5); HEMATOCRIT 38.1 % (35.4-49); HEMOGLOBIN 12.9 GM/dL (11.7-16.9); LYMPH % 38.8 % (8-40); MCH 31.2 pg (25.7-33.7); MCHC 33.9 g/dl (32.0-35.9); MEAN CELL VOLUME 91.8 fl (80-96); MEAN PLT VOLUME 8.8 fl (7.5-11.1); MONO % 8.6 % (3.8-10.2); NEUT % 46.6 % (42.8-82.8); PLATELET COUNT 222 10^3/uL (134-434); RBC 4.15 M/mm3 (4.00-5.60); RDW 21.6 % (11.9-15.9); WHITE BLOOD COUNT 4.9 K/mm3 (4.0-10.0)
[2023-07-30 08:28] LABS: POTASSIUM 4.6 mmol/L (3.5-5.1)
[2023-07-30 08:33] LABS: CALCIUM 9.1 mg/dL (8.5-10.1)
[2023-07-30 08:34] LABS: ALBUMIN 3.4 g/dl (3.4-5.0); BLOOD UREA NITROGEN 22.3 mg/dL (7-18); MAGNESIUM 1.9 mg/dL (1.8-2.4)
[2023-07-30 08:36] LABS: CREATININE 0.7 mg/dL (0.55-1.3)
[2023-07-30 08:38] LABS: BILIRUBIN,TOTAL 0.4 mg/dL (0.2-1); TOT PROT 8.5 g/dl (6.4-8.2)
[2023-07-30] MEDS: MAGNESIUM OXIDE 400 MG TABLET (FP) PO ONE (09:27)
[2023-07-30] MEDS: methaDONE HCL 10 MG TABLET PO SCH ×2 (14:01)
[2023-07-30] MEDS: methaDONE 40 MG, methaDONE 20 MG PO SCH (14:03)
[2023-07-31 08:38] VITALS: BP 121/89; PULSE 69; RESP 18; TEMP 97.7
== END 2023-07-31 14:16 | disposition other institution (70) | DRG 201 ==
LOC: JER 00:06 → JERBED 01:58 → J4W 07:07
PROVIDERS: ADMIT Internal Medicine; ATTEND Nurse Practitioner Acute Care
DX: I48.19 Other persistent atrial fibrillation (principal); F41.8 Other specified anxiety disorders; J44.9 Chronic obstructive pulmonary disease, unspecified; I42.0 Dilated cardiomyopathy; I11.0 Hypertensive heart disease with heart failure; I50.22 Chronic systolic (congestive) heart failure; F19.10 Other psychoactive substance abuse, uncomplicated; I42.6 Alcoholic cardiomyopathy; I48.92 Unspecified atrial flutter; D64.9 Anemia, unspecified; F10.239 Alcohol dependence with withdrawal, unspecified
CPT/HCPCS: 36415; 71045-TC-FY; 80053; 80061; 83036; 83690; 83735; 83880; 84100; 84439; 84443; 84484; 85025; 85045; 85610; 85730; 93005; 93010; 93306-TC; 97116-GP; 97161-GP; 99285-25